=== PATIENT | male | born 1960 | race Caucasian/White ===

== ENCOUNTER 2023-05-01 13:42 | Outpatient (AMB) | payer OTHER, SELFPAY ==
--- NOTE | 2023-05-01 13:45 | A.OFFVIS_ITS ---
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 The patient is a 62-year-old gentleman with a known history of CAD, COPD and also CVA back in 2021 affecting his ability to ambulate and also speak. He does have significant right-sided weakness and at this point is wheelchair bound. He also has aphasia and therefore his is providing most of the information. The patient has a worsening cough. The cough is congested and the patient has a hard time expectorating. When he does expectorate it is foul smelling and usually yellowish and green. Although, after the stroke any significant weakness he has not been able to handle his secretions or clear significant phlegm. For this reason he complains of shortness of breath throughout the day. Moderate severity. We did review a CT scan of the chest that he had back the summer of 2022 demonstrating some areas of emphysema in addition to atelectasis and some scarring. The patient does have visible mucus within the central airways as well. Based on is ineffective cough due to his stroke resulting in significant respiratory muscle weakness including diaphragmatic weakness. To some degree the patient does have bilateral weakness suggesting quadriparesis and he is wheelchair bound. The patient will benefit from a chest physical therapy with a percussion vest in addition to a nebulizer to help expectorate the sputum. The patient also has very poor dentition which is likely a culprit resulting in chronic aspiration of anaerobic bacteria into the lungs resulting in the fall smelling sputum. FORMERLY [facility], [facility] Medical History (Updated 05/01/23 @ 22:25 by Manas Elizondo MD) Chronic restrictive lung disease Diaphragm dysfunction CVA, old, hemiparesis COPD (chronic obstructive pulmonary disease) Social History (Updated 05/01/23 @ 13:53 by NAMRATA Unger) Patient Tobacco Use Status: Former Tobacco user Tobacco use type: Cigarette Years Smoked: 12 Years Review of Systems Const Unobtainable due to mental condition Card Denies chest pain and Reports dyspnea Resp Reports change in phlegm color, Reports chest congestion, Reports cough, Denies hemoptysis, Reports excessive phlegm production and Reports dyspnea Musc Reports abnormal gait and Reports muscle weakness Neuro Reports abnormal gait and Reports focal weakness Physical Exam Vital Signs: Last Vital Signs Pulse 67 05/01/23 13:47 BP 118/76 05/01/23 13:47 Pulse Ox 95 05/01/23 13:47 Oxygen Delivery Method Room Air 05/01/23 13:47 Const General: comfortable HEENT Teeth and gingiva: gingiva abnormal diffusely erythematous and poor dentition Neck Neck: Yes supple Chest Chest palpation & inspection: normal inspection of the chest Resp Effort & Inspection: normal respiratory effort and Actively coughing Quality: other (weak) Auscultation: diminished lung sounds Cardio Rate: regular rate Rhythm: regular rhythm GI Palpation (GI): Soft to palpation Skin General skin exam: no rashes or lesions noted Extrem General: No clubbing and No cyanosis Assessment & Plan Assessment & Plan (1) COPD (chronic obstructive pulmonary disease): Code(s): J44.9 - Chronic obstructive pulmonary disease, unspecified (2) CVA, old, hemiparesis: Code(s): I69.359 - Hemiplegia and hemiparesis following cerebral infarction affecting unspecified side (3) Diaphragm dysfunction: Code(s): J98.6 - Disorders of diaphragm (4) Chronic restrictive lung disease: Code(s): J98.4 - Other disorders of lung Plan PFTs with MIPS and MEPS Start nebulizer with albuterol BID Start percussion vest while using the nebulizer for chest PT in view of his neuromuscular deficits and weak cough Consider cough assist if no better start chlorhexadine MW daily, likely microaspirating anaerobic bacteria F/U 6-8 weeks Orders: Orders PFT pulmonary function test Today J44.9 - Chronic obstructive pulmonary disease, unspecified Medications: New chlorhexidine gluconate 0.12% 15 mL buccal DAILY 30 days 450 mL 0RF albuterol sulfate 2.5 mg (3 mL) inhalation BID 30 days 180 mL 11RF shortness of breath or wheezing J44.9 - Chronic obstructive pulmonary disease, unspecified Coding Level of Care Code New Pt Level 4 (14407) Diagnoses COPD (chronic obstructive pulmonary disease) J44.9 CVA, old, hemiparesis I69.359 Diaphragm dysfunction J98.6 Chronic restrictive lung disease J98.4 Time Spent (min) 40
[2023-05-01 13:47] VITALS: BP 118/76; PULSE 67; O2SAT 95
== END 2023-05-01 14:20 | disposition home or self-care (01) ==
PROVIDERS: PCP Physician Assistant Medical; Referring Provider Physician Assistant Medical; Visit Provider Hospitalist
DX: J44.9 Chronic obstructive pulmonary disease, unspecified (principal); I69.359 Hemiplegia and hemiparesis following cerebral infarction affecting unspecified side; J98.6 Disorders of diaphragm; J98.4 Other disorders of lung
CPT/HCPCS: 99204

== ENCOUNTER → 2023-05-01 13:42 | Outpatient (BNVA) | payer MEDICAID, SELFPAY | PROVIDERS: PCP Physician Assistant Medical; Referring Provider Physician Assistant Medical; Visit Provider Hospitalist ==

== ENCOUNTER 2023-06-14 10:08 | Outpatient (REF) | payer OTHER, SELFPAY ==
--- NOTE | 2023-06-14 11:50 | PFT_ITS ---
Indication: COPD Spirometry [FEV1 to FVC 70%; with an FEV1 of 2.71 L which is 100% predicted; FVC 3.86 L which is 101% predicted. No significant response to bronchodilators noted. Maximum voluntary ventilation 51% predicted] Lung Volumes [Total lung capacity 71% predicted with an expiratory reserve volume of 72% predicted] Diffusion Capacity [DLCO 52% predicted] comparisons [none] Interpretation [There is an obstructive ventilatory defect consistent mild COPD. No significant response to bronchodilators noted. The patient has a moderate decrease in maximum voluntary ventilation likely secondary to deconditioning. Cannot rule out neuromuscular conditions. Patient also has restrictive ventilatory defect consistent mild restrictive lung disease. Patient also has moderate diffusion impairment. Clinical correlation warranted.] MTDD
== END 2023-06-14 10:09 | disposition home or self-care (01) ==
LOC: HO.RESP 10:08
PROVIDERS: Visit Provider Hospitalist
DX: J44.9 Chronic obstructive pulmonary disease, unspecified (principal)
CPT/HCPCS: 94010; 94727; 94729